=== PATIENT | female | born 1950 | race Caucasian/White ===

== ENCOUNTER 2016-11-18 19:54 | Emergency (ER) | payer MEDICARE, OTHER ==
[~2016-11-18] VITALS: Ht 165.1 cm; Wt 83.9 kg
--- NOTE | 2016-11-18 20:30 | NUR ---
PT CAME IN WITH C/O R KNEE PAIN. NAD NOTED. VSS. SEEN BY MD. SAFETY AND COMFORT MEASURES PROVIDED. WILL MONITOR.
[2016-11-18] MEDS ORDERED: HYDROCODONE/APAP 5/325MG 1 EACH TABLET ONE (20:41)
--- NOTE | 2016-11-18 20:45 | NUR ---
SAM AT BS.
--- NOTE | 2016-11-18 20:50 | NUR ---
PT MEDICATED ORDERED.
[2016-11-18] MEDS ORDERED: HYDROCODONE/APAP 5/325MG 1 EACH TABLET PO ONE (21:00)
[2016-11-18 21:42] VITALS: BP 111/44
== END 2016-11-18 22:00 | disposition home or self-care (01) ==
LOC: ER 19:54
DX: S80.01XA Contusion of right knee, initial encounter (principal); E11.9 Type 2 diabetes mellitus without complications; G47.30 Sleep apnea, unspecified; I10 Essential (primary) hypertension; J44.9 Chronic obstructive pulmonary disease, unspecified; W01.0XXA Fall on same level from slipping, tripping and stumbling without subsequent striking against object, initial encounter; Y93.89 Activity, other specified; Y92.89 Other specified places as the place of occurrence of the external cause; Y99.8 Other external cause status
CPT/HCPCS: 73564-TC; A4606; Z7610

== ENCOUNTER 2017-08-07 20:10 | Emergency (ER) | payer MEDICARE, OTHER ==
[~2017-08-07] VITALS: Ht 165.1 cm; Wt 88.5 kg
[2017-08-07 20:20] VITALS: BP 138/58
[2017-08-07] MEDS ORDERED: ACETAMINOPHEN ES 500 MG TABLET ONE (21:29)
[2017-08-07] MEDS ORDERED: ACETAMINOPHEN ES 500 MG TABLET PO ONE (21:30)
== END 2017-08-07 22:17 | disposition home or self-care (01) ==
LOC: ER 20:25
DX: S63.502A Unspecified sprain of left wrist, initial encounter (principal); E11.9 Type 2 diabetes mellitus without complications; G47.30 Sleep apnea, unspecified; I10 Essential (primary) hypertension; J45.909 Unspecified asthma, uncomplicated; M85.80 Other specified disorders of bone density and structure, unspecified site; F17.200 Nicotine dependence, unspecified, uncomplicated; W20.8XXA Other cause of strike by thrown, projected or falling object, initial encounter; Y93.E2 Activity, laundry; Y92.89 Other specified places as the place of occurrence of the external cause; Y99.8 Other external cause status
CPT/HCPCS: 73130; 99284; A4606; Z7610

== ENCOUNTER 2023-08-13 13:22 | Inpatient (IN) | payer MEDICARE, OTHER ==
[~2023-08-13] VITALS: Ht 165.1 cm; Wt 72.6 kg
[2023-08-13] MEDS: IV NS 0.9% 1,000 ML BAG IV ONE (14:02)
[2023-08-13 14:15] LABS: BASOPHILS # (AUTO) 0.1 K/uL (0.0-0.2); BASOPHILS % (AUTO) 0.9 % (0.0-2.0); EOSINOPHILS % (AUTO) 0.6 % (0.0-6.0); HEMATOCRIT 41 % (33-45); HEMOGLOBIN 13.7 g/dL (11.5-14.8); LYMPHOCYTES # (AUTO) 2.9 K/uL (0.8-4.8); LYMPHOCYTES % (AUTO) 34.7 % (20.0-44.0); MEAN CORPUSCULAR HEMOGLOBIN 31 PG (26.0-33.0); MEAN CORPUSCULAR HGB CONC 34 g/dl (31.0-36.0); MEAN CORPUSCULAR VOLUME 93 fL (82-100); MONOCYTES # (AUTO) 0.8 K/uL (0.1-1.30); MONOCYTES % (AUTO) 9.6 % (2.0-12.0); NEUTROPHILS # (AUTO) 4.6 K/uL (1.8-8.9); NEUTROPHILS % (AUTO) 54.2 % (43.0-81.0); PLATELET COUNT (AUTO) 298 K/uL (150-450); RED BLOOD CELL COUNT(AUTO) 4.38 MIL/uL (4.0-5.2); RED CELL DISTRIBUTION WIDTH 14.9 % (11.5-15.0); WHITE BLOOD COUNT (AUTO) 8.4 K/uL (4.3-11.0)
[2023-08-13 14:28] LABS: ALANINE AMINOTRANSFERASE 22 U/L (12-78); ALBUMIN 1.9 g/dL (3.4-5.0); ALKALINE PHOSPHATASE 135 U/L (46-116); ASPARTATE AMINOTRANSFERASE 13 U/L (15-37); BILIRUBIN,DIRECT 0.1 mg/dL (0.0-0.2); BILIRUBIN,TOTAL 0.3 mg/dL (0.2-1.0); CALCIUM, SERUM 9.4 mg/dL (8.5-10.1); CARBON DIOXIDE 27 mmol/L (21-32); CHLORIDE 100 mmol/L (98-107); CREATININE 0.3 mg/dL (0.6-1.3); GLUCOSE 166 mg/dL (74-106); LIPASE 16 U/L (16-77); POTASSIUM 4.1 mmol/L (3.5-5.1); SODIUM SERUM 135 mmol/L (136-145); TOTAL PROTEIN, SERUM 6.9 g/dL (6.4-8.2); UREA NITROGEN, BLOOD 10 mg/dL (7-18)
[2023-08-13] MEDS ORDERED: ONDANSETRON HCL/PF 4 MG/2 ML VIAL ONE (14:28)
[2023-08-13] MEDS: ONDANSETRON HCL/PF - ER 4 MG/2 ML VIAL IV ONE (14:29)
[2023-08-13 16:04] LABS: BILIRUBIN,URINE NEGATIVE (NEGATIVE); BLOOD, URINE 1+ Ery/uL (NEGATIVE); COLOR,URINE YELLOW (YELLOW); KETONES,URINE NEGATIVE (NEGATIVE); LEUKOCYTE ESTERASE ,URINE 2+ (NEGATIVE); NITRITE, URINE NEGATIVE (NEGATIVE); PROTEIN,URINE TRACE mg/dl (NEGATIVE); UGLUCOSE 3+ mg/dL (NEGATIVE)
[2023-08-13 16:05] LABS: APPEARANCE,URINE CLOUDY (CLEAR)
[2023-08-13 16:16] LABS: ADD URINE CULTURE YES; BACTERIA,URINE Many /HPF (None Seen); SQUAMOUS EPITHELIAL CELL,UR Few /HPF (None Seen); WBC,URINE TOO NUMEROUS TO COUN /HPF (0-3)
[2023-08-13] MEDS ORDERED: LOSA25TA27 PO (16:24)
[2023-08-13] MEDS ORDERED: AMIN887L7 PO (16:24)
[2023-08-13] MEDS ORDERED: [UNRECOGNIZED DRUG - CODE] TP (16:24)
[2023-08-13] MEDS ORDERED: HYDR-4303 PO (16:24)
[2023-08-13] MEDS ORDERED: DULO30CA52 PO (16:24)
[2023-08-13] MEDS ORDERED: ASCO-352 PO (16:24)
[2023-08-13] MEDS ORDERED: MELA3TAB41 PO (16:24)
[2023-08-13] MEDS ORDERED: FLUT16SP16 BNOSTRILS (16:24)
[2023-08-13] MEDS ORDERED: ASPI-1169 PO (16:24)
[2023-08-13] MEDS ORDERED: MULT-213 PO (16:24)
[2023-08-13] MEDS ORDERED: POLY17PO4 PO (16:24)
[2023-08-13] MEDS ORDERED: ACET-868 PO (16:24)
[2023-08-13] MEDS ORDERED: EMPA10TA PO (16:24)
[2023-08-13] MEDS ORDERED: FAMO20TA8 PO (16:24)
[2023-08-13] MEDS ORDERED: IPRA3AMP22 IH (16:24)
[2023-08-13] MEDS ORDERED: INSU100V36 SQ (16:24)
[2023-08-13] MEDS ORDERED: NITR0.4T48 SL (16:24)
[2023-08-13] MEDS ORDERED: GABA-532 PO (16:24)
[2023-08-13] MEDS ORDERED: METO-357 PO (16:24)
[2023-08-13] MEDS ORDERED: ATOR10TA PO (16:24)
[2023-08-13] MEDS ORDERED: DOCU100C36 PO (16:24)
[2023-08-13] MEDS ORDERED: MAG HYDROX/AL HYDROX/SIMETH 30 ML UDC PO PRN (19:00)
[2023-08-13] MEDS ORDERED: MAGNESIUM HYDROXIDE 30 ML UDC PO PRN (19:00)
[2023-08-13] MEDS ORDERED: ONDANSETRON HCL/PF 4 MG/2 ML VIAL IVP PRN (19:00)
[2023-08-13] MEDS ORDERED: ZOLPIDEM TARTRATE 5 MG TABLET PO PRN (19:00)
[2023-08-13] MEDS ORDERED: Z GUARD REMEDY 4 OZ OINT TP PRN (19:00)
[2023-08-13 20:30] VITALS: BP 108/66; TEMP 98; O2SAT 100
[2023-08-13] MEDS: IV D5/0.45 NACL 1,000 ML IV PRN (21:10)
[2023-08-13] MEDS: METRONIDAZOLE 500MG/ NS 100ML 500 MG in PREMIX 1 EA IV SCH (21:13)
[2023-08-13] MEDS: ENOXAPARIN SODIUM 40 MG/0.4 ML DISP.SYRIN SQ SCH (21:39)
[2023-08-13] MEDS: CIPROFLOXACIN IV RTU 400 MG in PREMIX 1 EA IV SCH (22:10)
[2023-08-14 07:00] VITALS: BP 103/58; O2SAT 96
[2023-08-14 07:02] LABS: BASOPHILS # (AUTO) 0.1 K/uL (0.0-0.2); BASOPHILS % (AUTO) 1.2 % (0.0-2.0); EOSINOPHILS % (AUTO) 0.6 % (0.0-6.0); HEMATOCRIT 40 % (33-45); HEMOGLOBIN 13.2 g/dL (11.5-14.8); LYMPHOCYTES # (AUTO) 2.5 K/uL (0.8-4.8); LYMPHOCYTES % (AUTO) 37.7 % (20.0-44.0); MEAN CORPUSCULAR HEMOGLOBIN 31 PG (26.0-33.0); MEAN CORPUSCULAR HGB CONC 33 g/dl (31.0-36.0); MEAN CORPUSCULAR VOLUME 95 fL (82-100); MONOCYTES # (AUTO) 0.8 K/uL (0.1-1.30); MONOCYTES % (AUTO) 11.4 % (2.0-12.0); NEUTROPHILS # (AUTO) 3.3 K/uL (1.8-8.9); NEUTROPHILS % (AUTO) 49.1 % (43.0-81.0); PLATELET COUNT (AUTO) 254 K/uL (150-450); RED BLOOD CELL COUNT(AUTO) 4.26 MIL/uL (4.0-5.2); RED CELL DISTRIBUTION WIDTH 14.6 % (11.5-15.0); WHITE BLOOD COUNT (AUTO) 6.7 K/uL (4.3-11.0)
[2023-08-14 07:26] LABS: CALCIUM, SERUM 8.4 mg/dL (8.5-10.1); CARBON DIOXIDE 22 mmol/L (21-32); CHLORIDE 101 mmol/L (98-107); CREATININE 0.2 mg/dL (0.6-1.3); GLUCOSE 185 mg/dL (74-106); MAGNESIUM 2.1 mg/dL (1.8-2.4); PHOSPHORUS 3.7 mg/dL (2.5-4.9); SODIUM SERUM 132 mmol/L (136-145); UREA NITROGEN, BLOOD 7 mg/dL (7-18)
[2023-08-14] MEDS: PANTOPRAZOLE 40 MG VIAL IV SCH (10:07)
[2023-08-14] MEDS ORDERED: NITROGLYCERIN 0.4 MG/TAB BOTTLE SL PRN (10:30)
[2023-08-14] MEDS ORDERED: POLYETHYLENE GLYCOL 3350 17 GM POWD.PACK PO PRN (10:30)
[2023-08-14] MEDS ORDERED: Medication Not On Formulary EA (Melatonin 3 MG) PO PRN (10:30)
[2023-08-14] MEDS ORDERED: ACETAMINOPHEN 325 MG TABLET PO PRN (10:30)
[2023-08-14] MEDS ORDERED: IPRATROPIUM NEB FS 0.5 MG/2.5 ML AMPUL.NEB NEB PRN (11:00)
[2023-08-14] MEDS ORDERED: ALBUTEROL FS 2.5 MG/0.5 ML VIAL.NEB NEB PRN (11:00)
[2023-08-14] MEDS: DAKINS QUARTER STRENGTH (0.125%) 480 ML BOTTLE TOP SCH (12:25)
[2023-08-14] MEDS: GABAPENTIN 100 MG CAPSULE PO SCH (14:08)
[2023-08-14] MEDS: IV D5/ 0.9% NACL 1,000 ML IV SCH (14:13)
[2023-08-14 16:00] VITALS: BP 133/82; TEMP 97.7; O2SAT 98
[2023-08-14] MEDS: DULOXETINE HCL 30 MG CAPSULE.DR PO SCH (17:09)
[2023-08-14] MEDS: BLOOD SUGAR DIAGNOSTIC 1 EACH STRIP IN SCH (17:09)
[2023-08-14] MEDS ORDERED: LACTULOSE 10 G/15 ML UDC (PYXIS) PO PRN (19:30)
[2023-08-14 20:00] VITALS: BP 132/59; TEMP 97.9; O2SAT 95
[2023-08-14 20:13] VITALS: BP 132/59; TEMP 97.9; O2SAT 95
[2023-08-14] MEDS: ATORVASTATIN 10 MG TABLET PO SCH (21:35)
[2023-08-14] MEDS: DOCUSATE SODIUM 100 MG CAPSULE PO SCH (22:24)
[2023-08-14] MEDS: METOPROLOL SUCCINATE 50 MG TAB.SR.24H PO SCH (22:25)
[2023-08-14 22:26] VITALS: BP 110/65; O2SAT 99
[2023-08-15 00:02] VITALS: BP 93/51; TEMP 98.2; O2SAT 95
[2023-08-15 06:34] LABS: BASOPHILS # (AUTO) 0.1 K/uL (0.0-0.2); BASOPHILS % (AUTO) 1.2 % (0.0-2.0); EOSINOPHILS # (AUTO) 0.1 K/uL (0.0-0.7); EOSINOPHILS % (AUTO) 0.9 % (0.0-6.0); HEMATOCRIT 37 % (33-45); HEMOGLOBIN 12.3 g/dL (11.5-14.8); LYMPHOCYTES # (AUTO) 2.6 K/uL (0.8-4.8); LYMPHOCYTES % (AUTO) 39.1 % (20.0-44.0); MEAN CORPUSCULAR HEMOGLOBIN 31 PG (26.0-33.0); MEAN CORPUSCULAR HGB CONC 33 g/dl (31.0-36.0); MEAN CORPUSCULAR VOLUME 93 fL (82-100); MONOCYTES # (AUTO) 0.7 K/uL (0.1-1.30); MONOCYTES % (AUTO) 10.8 % (2.0-12.0); NEUTROPHILS # (AUTO) 3.2 K/uL (1.8-8.9); PLATELET COUNT (AUTO) 274 K/uL (150-450); RED CELL DISTRIBUTION WIDTH 14.9 % (11.5-15.0); WHITE BLOOD COUNT (AUTO) 6.6 K/uL (4.3-11.0)
[2023-08-15 07:00] VITALS: BP 122/59; TEMP 97.3; O2SAT 97
[2023-08-15 07:01] LABS: CALCIUM, SERUM 8.8 mg/dL (8.5-10.1); CARBON DIOXIDE 23 mmol/L (21-32); CHLORIDE 104 mmol/L (98-107); CREATININE 0.2 mg/dL (0.6-1.3); GLUCOSE 170 mg/dL (74-106); PHOSPHORUS 3.7 mg/dL (2.5-4.9); POTASSIUM 3.6 mmol/L (3.5-5.1); SODIUM SERUM 137 mmol/L (136-145); UREA NITROGEN, BLOOD 5 mg/dL (7-18)
[2023-08-15 07:02] LABS: URINE SODIUM, RANDOM 34 mmol/l (40-220)
[2023-08-15 07:18] LABS: URIC ACID 2.6 mg/dL (2.6-7.2)
[2023-08-15] MEDS: FLUTICASONE PROPIONATE 16 GM BOTTLE NS SCH (08:53)
[2023-08-15] MEDS: EMPAGLIFLOZIN 25 MG TABLET PO SCH (08:54)
[2023-08-15] MEDS: ASPIRIN 81 MG TAB.CHEW PO SCH (08:55)
[2023-08-15] MEDS: MULTIVIT W/MINERALS 1 TAB TABLET PO SCH (08:55)
[2023-08-15] MEDS: CIPROFLOXACIN HCL 500 MG TABLET PO SCH (08:55)
[2023-08-15] MEDS: PANTOPRAZOLE 40 MG TABLET.DR PO SCH (08:55)
[2023-08-15] MEDS: ASCORBIC ACID 500 MG TABLET PO SCH (08:56)
[2023-08-15] MEDS: PROSOURCE / PROSTAT (PYXIS) 30 ML UDC PO SCH (08:57)
[2023-08-15] MEDS: LOSARTAN POTASSIUM 25 MG TABLET PO SCH (08:57)
[2023-08-15] MEDS: ACETAMINOPHEN 325 MG TABLET PO PRN (09:06)
[2023-08-15] MEDS: METRONIDAZOLE 500 MG TABLET PO SCH (12:29)
[2023-08-15] MEDS ORDERED: IOHEXOL-300 100 ML VIAL IV ONE (13:28)
[2023-08-15] MEDS ORDERED: CT SWABBABLE VALVE TRANS SET 1 EA INFUS.SET MC ONE (13:28)
[2023-08-15] MEDS ORDERED: IV NS 0.9% 250 ML IV ONE (13:28)
[2023-08-15] MEDS ORDERED: IOHEXOL-350 100 ML VIAL IV ONE (14:23)
[2023-08-15 16:00] VITALS: BP 98/54; TEMP 97.7; O2SAT 99
[2023-08-15] MEDS: IV D5/ 0.9% NACL 1,000 ML IV PRN (18:12)
[2023-08-15 20:08] VITALS: BP 93/51; TEMP 98.2; O2SAT 95
[2023-08-15] MEDS: MUPIROCIN OINT 2% 22 GM TUBE NS SCH (20:16)
[2023-08-15] MEDS: HYDROCODONE/APAP 5/325MG TABLET PO PRN (20:29)
[2023-08-15 20:43] VITALS: BP 93/57; TEMP 98.2; O2SAT 95
[2023-08-16 04:02] VITALS: BP 142/79; TEMP 97.9; O2SAT 96
[2023-08-16 07:49] LABS: BASOPHILS # (AUTO) 0.1 K/uL (0.0-0.2); BASOPHILS % (AUTO) 0.8 % (0.0-2.0); EOSINOPHILS # (AUTO) 0.1 K/uL (0.0-0.7); EOSINOPHILS % (AUTO) 0.9 % (0.0-6.0); HEMATOCRIT 38 % (33-45); HEMOGLOBIN 12.3 g/dL (11.5-14.8); LYMPHOCYTES # (AUTO) 3.4 K/uL (0.8-4.8); LYMPHOCYTES % (AUTO) 42.5 % (20.0-44.0); MEAN CORPUSCULAR HEMOGLOBIN 31 PG (26.0-33.0); MEAN CORPUSCULAR HGB CONC 33 g/dl (31.0-36.0); MEAN CORPUSCULAR VOLUME 94 fL (82-100); MONOCYTES % (AUTO) 12.7 % (2.0-12.0); NEUTROPHILS # (AUTO) 3.5 K/uL (1.8-8.9); NEUTROPHILS % (AUTO) 43.1 % (43.0-81.0); PLATELET COUNT (AUTO) 277 K/uL (150-450); RED BLOOD CELL COUNT(AUTO) 4.01 MIL/uL (4.0-5.2); RED CELL DISTRIBUTION WIDTH 14.8 % (11.5-15.0)
[2023-08-16 07:50] LABS: CALCIUM, SERUM 7.9 mg/dL (8.5-10.1); CARBON DIOXIDE 23 mmol/L (21-32); CHLORIDE 104 mmol/L (98-107); CREATININE 0.3 mg/dL (0.6-1.3); GLUCOSE 176 mg/dL (74-106); MAGNESIUM 1.8 mg/dL (1.8-2.4); PHOSPHORUS 3.2 mg/dL (2.5-4.9); SODIUM SERUM 136 mmol/L (136-145); UREA NITROGEN, BLOOD 2 mg/dL (7-18)
[2023-08-16 08:00] VITALS: BP 123/6; TEMP 97.9; O2SAT 97
[2023-08-16] MEDS: POTASSIUM CHLORIDE 20 MEQ TAB.PRT.SR PO SCH (10:26)
[2023-08-16] MEDS ORDERED: METR500T PO (15:11)
[2023-08-16] MEDS ORDERED: CIPR500S2 PO (15:11)
[2023-08-16 16:00] VITALS: BP 98/52; TEMP 98.7; O2SAT 94
== END 2023-08-16 18:34 | DRG 391 ==
LOC: ER 13:25 → MED 20:10
PROVIDERS: ADMIT Student in an Organized Health Care Education/Training Program; ATTEND Student in an Organized Health Care Education/Training Program
DX: K57.32 Diverticulitis of large intestine without perforation or abscess without bleeding (principal); E43 Unspecified severe protein-calorie malnutrition; N39.0 Urinary tract infection, site not specified; E87.1 Hypo-osmolality and hyponatremia; G83.4 Cauda equina syndrome; E11.40 Type 2 diabetes mellitus with diabetic neuropathy, unspecified; I10 Essential (primary) hypertension; Z85.118 Personal history of other malignant neoplasm of bronchus and lung; Z79.899 Other long term (current) drug therapy; Z79.51 Long term (current) use of inhaled steroids; Z79.84 Long term (current) use of oral hypoglycemic drugs; Z79.4 Long term (current) use of insulin; Z79.82 Long term (current) use of aspirin; K59.00 Constipation, unspecified; E27.9 Disorder of adrenal gland, unspecified; N63.23 Unspecified lump in the left breast, lower outer quadrant; R59.0 Localized enlarged lymph nodes; D25.9 Leiomyoma of uterus, unspecified; F17.200 Nicotine dependence, unspecified, uncomplicated; G47.30 Sleep apnea, unspecified; G93.9 Disorder of brain, unspecified; J44.9 Chronic obstructive pulmonary disease, unspecified; N81.4 Uterovaginal prolapse, unspecified; L89.150 Pressure ulcer of sacral region, unstageable
CPT/HCPCS: 36415; 71270-TC; 80048-TC; 80076-TC; 81001; 82378; 82962-TC; 83690-TC; 83735-TC; 83935-TC; 84100-TC; 84300-TC; 84443-TC; 84550-TC; 85025-TC; 87040-TC; 87081-TC; 87086-TC; A4216; A4223; A6253; A6403; C9113; G0378; J0744; J1650; J2405; J3490; J7030; J7042; J7050; Q9967